=== PATIENT | female | born 1980 | race Caucasian/White ===

== ENCOUNTER 2023-02-03 21:40 | Emergency (ER) | payer BC, MEDICAID, SELFPAY ==
[2023-02-03 21:44] VITALS: BP 151/88; PULSE 87; RESP 20; TEMP 36.7; O2SAT 100
--- NOTE | 2023-02-03 22:00 | ED.URI ---
HPI - URI/Sore Throat General Chief Complaint: Upper Respiratory Infection Stated Complaint: upper respitory infection Source: patient and family Mode of arrival: ambulatory Limitations: no limitations History of Present Illness HPI Narrative: This is a 42-year-old female that was recently diagnosed with COVID and prior to that was having sinus congestion with maxillary sinus tenderness with postnasal drip and frequent bloody noses, with no fever chills does have a nonproductive cough no shortness of breath. MD elicited complaint: nasal congestion and sinus pain Onset (ago): day(s) Consistency: constant Severity: mild Related Data Home Medications Medication Instructions Recorded Confirmed No Home Medications 02/03/23 02/03/23 Review of Systems Review of Systems: All systems reviewed & are unremarkable except as noted in HPI and below PMFSH Past Medical History Medical History Patient denies medical problems Exam Const: General: healthy appearing Nutritional Appearance: well nourished Orientation/consciousness: patient oriented x3 Limitations: no limitations HENMT: Head: normal to inspection Face and sinus: normal facial exam and sinus tenderness Mouth: Yes Normal oral and palatal mucosa present Eyes: Conjunctivae: conjunctivae normal EOM: EOMs intact bilaterally Direct Ophthalmoscopy: no photophobia Neck: Neck: normal visual inspection Chest: Chest palpation & inspection: normal inspection of the chest Resp: Effort & Inspection: normal respiratory effort Auscultation: clear to auscultation bilaterally Cardio: Rate: regular rate Rhythm: regular rhythm GI: GI Palp: Yes Soft to palpation : General: Yes bladder normal to palpation Skin: General skin exam: normal color Rashes: no rashes Neuro: General: patient oriented x3 Extrem: General: normal to inspection Psych: Mental Status: mental status grossly normal Course Course Emergency Course: patient received a dose of Zithromax 500mg p.o.. Vital Signs Vital signs: Vital Signs Temperature 36.7 C 02/03/23 21:44 Pulse Rate 87 02/03/23 21:44 Respiratory Rate 20 02/03/23 21:44 Blood Pressure 151/88 H 02/03/23 21:44 Pulse Oximetry 100 02/03/23 21:44 Oxygen Delivery Room Air 02/03/23 21:44 Temperature 36.7 C 02/03/23 21:44 Pulse Rate 87 02/03/23 21:44 Respiratory Rate 20 02/03/23 21:44 Blood Pressure 151/88 H 02/03/23 21:44 Pulse Oximetry 100 02/03/23 21:44 Oxygen Delivery Room Air 02/03/23 21:44 Critical Care Time Critical Care Time Critical Care Time: No Discharge Plan Discharge Clinical Impression: Sinusitis Qualifiers: Sinusitis location: maxillary Chronicity: acute Recurrence: non-recurrent Qualified Code(s): J01.00 - Acute maxillary sinusitis, unspecified Patient Disposition: Home, Self-Care Condition: Stable Instructions: Antibiotic Form, Sinusitis (ED) Additional Instructions: Take medicine as prescribed, can also take Claritin [id number] 10mg daily times 1 to 2 weeks, follow-up primary care physician if symptoms persist or worsen. Prescriptions: New azithromycin [Zithromax Z-Brent] 250 mg tablet See Rx Instructions .ROUTE .COMPLEX Qty: 6 0RF Rx Instructions: For 250 mg dose pack: take 500 mg today (day 1), then 250 mg for 4 days (days 2-5) No Action No Home Medications Follow-up/Referrals: Roberto Rollins M.D. [Primary Care Provider] - Time of Disposition: 22:04
[2023-02-03] MEDS: AZITHROMYCIN 250 MG TABLET 500 MG PO (22:07)
== END 2023-02-03 22:14 | disposition home or self-care (01) ==
PROVIDERS: Emergency Provider Emergency Medicine; PCP Family Medicine
DX: J01.00 Acute maxillary sinusitis, unspecified (principal)
CPT/HCPCS: 99283; A9270